=== PATIENT | male | born 1990 | race Caucasian/White ===

== ENCOUNTER 2016-10-20 16:55 | Emergency (ER) | payer OTHER ==
[~2016-10-20 16:55] MED LIST: IBUP600T26 PO
[2016-10-20 17:01] VITALS: BP 130/100; PULSE 65; RESP 20; TEMP 97.9; O2SAT 99
--- NOTE | 2016-10-20 18:21 | PD ---
HPI Chief Complaint: Musculoskeletal Complaint Time Seen by Provider: 18:17 Travel History International Travel<30 days: No Contact w/Intl Traveler<30days: No Traveled to known affect area: No History of Present Illness HPI 25-year-old male presents to the emergency room for evaluation of right hand pain and swelling that started just prior to arrival. Patient was punching a punching bag without gloves when he felt pain in his right fourth knuckle. He looked down and saw that his hand was swollen. Pain is localized to the fourth MCP joint and fourth finger. Denies loss range of motion or paresthesias. Denies significant pain. Patient has not taken anything and came straight to the emergency room after injury. Denies any other injuries. No chronic medical conditions or daily medications. [facility] Social History Alcohol Use: No Tobacco Use: Yes (5 CIGGERETTES DAILY) Substance Use: No Allergies-Medications (Allergen,Severity, Reaction): Coded Allergies: No Known Allergies (Unverified , 10/20/16) Reported Meds & Prescriptions Reported Meds & Active Scripts Active No Active Prescriptions or Reported Medications Review of Systems Except as stated in HPI: all other systems reviewed are Neg Physical Exam Narrative GENERAL: Well-nourished, well-developed male in no acute distress. Afebrile. Ambulatory. SKIN: Focused skin assessment warm/dry. Mild to moderate erythema and ecchymosis over the right fourth dorsal MCP joint. HEAD: Normocephalic. EYES: No scleral icterus. No injection or drainage. NECK: Supple, trachea midline. No JVD or lymphadenopathy. CARDIOVASCULAR: Regular rate and rhythm without murmurs, gallops, or rubs. RESPIRATORY: Breath sounds equal bilaterally. No accessory muscle use. EXTREMITY: Extreme tenderness to palpation of the right fourth MCP joint and right fourth proximal phalanx. Moderate tenderness to palpation of the right fifth metacarpal. Less than 2 second capillary refill distally. Full range motion of the right hand. Moderate edema of the fourth MCP joint. Data Data Last Documented VS Vital Signs Date Time Temp Pulse Resp B/P Pulse Ox O2 Delivery O2 Flow Rate FiO2 10/20/16 18:26 16 10/20/16 17:01 97.9 65 130/100 99 Orders Hand, Complete ([id number]) (10/20/16 ) Splint Or Brace Apply/Monitor (10/20/16 18:58) [facility] Medical Decision Making Medical Screen Exam Complete: Yes Emergency Medical Condition: Yes Medical Record Reviewed: Yes Differential Diagnosis Facture, sprain, strain, contusion Narrative Course 25-year-old male presents to the emergency room for evaluation of right fourth and metacarpal pain and swelling after punching a punching bag without gloves just prior to arrival. Right hand is neurovascularly intact with 2 second capillary refill distally. Full range of motion of the right hand. There is moderate edema and extreme tenderness to palpation especially over the fourth and fifth MCP joints. X-ray shows probable nondisplaced fracture of the fifth metacarpal. Patient placed in ulnar gutter splint and discharged with orthopedic instructions. Told to follow up with primary care physician or return for worsening symptoms. He understands and agrees to plan. Diagnosis Primary Impression: Fracture of fifth metacarpal bone Qualified Code: S62.396A - Closed nondisplaced fracture of other part of fifth metacarpal bone of right hand, initial encounter Referrals: Primary Care Physician Patient Instructions: General Instructions, Hand Fracture (ED) Additional Instructions: Rest and drink plenty of fluids. Keep splint on until follow-up. Take ibuprofen with food as directed, as needed for pain. Elevate and apply ice to the affected area for 20 minutes at a time, as needed for pain and swelling. Follow-up with a primary care physician. Return to the emergency room for worsening symptoms. Scripts No Active Prescriptions or Reported Meds Disposition: 01 DISCHARGE HOME Condition: Stable Nuha Diaz Oct 20, 2016 18:21
--- NOTE | 2016-10-20 18:51 | RADRPT ---
EXAM DATE/TIME: 10/20/2016 18:25 [facility] COMPARISON: No previous studies available for comparison. INDICATIONS : Right hand pain. MEDICAL HISTORY : None. SURGICAL HISTORY : None. ENCOUNTER: Initial ACUITY: 1 day PAIN SCORE: 5/10 LOCATION: Right hand, 3rd digit. FINDINGS: Normal bone density.Widths are intact. Mild dorsal soft tissue swelling. Questionable nondisplaced fr acture through the fifth metacarpal distally. Third metacarpal appears intact. CONCLUSION: Fifth metacarpal fracture suspected. Correlate for point tenderness. Kvng Morrow MD on October 20, 2016 at 18:49 Board Certified Radiologist. This report was verified electronically.
== END 2016-10-20 19:35 | disposition home or self-care (01) ==
LOC: PHED 16:55 → PHEFT 19:35
DX: S62.396A Other fracture of fifth metacarpal bone, right hand, initial encounter for closed fracture (principal); W22.8XXA Striking against or struck by other objects, initial encounter; Y93.89 Activity, other specified; Y92.9 Unspecified place or not applicable
CPT/HCPCS: 29125; 73130

== ENCOUNTER 2016-10-31 08:03 | Emergency (ER) | payer OTHER ==
[~2016-10-31] VITALS: Ht 180.3 cm; Wt 70.0 kg
[2016-10-31 08:04] VITALS: BP 133/73; PULSE 72; RESP 16; TEMP 99; O2SAT 96
--- NOTE | 2016-10-31 08:30 | PD ---
HPI Chief Complaint: Lump, Cyst, Hernia Time Seen by Provider: 08:19 Travel History International Travel<30 days: No Contact w/Intl Traveler<30days: No Traveled to known affect area: No History of Present Illness HPI 26yo M with no PMH presents to the ED with c/o a lump intermittently in his left groin for 2 weeks. States he noticed it after working out. Currently has no pain, nausea, vomiting, fever, chest pain, sob, abdominal pain, testicular pain, penile discharge or rash. Pt currently does not have the lump. PFSH Past Medical History Medical History: Denies Significant Hx Past Surgical History Other Surgery: Yes (right hand 5th digit) Social History Alcohol Use: No Tobacco Use: Yes Substance Use: Yes (states smokes "weed") Allergies-Medications (Allergen,Severity, Reaction): Coded Allergies: No Known Allergies (Unverified , 10/31/16) Reported Meds & Prescriptions Reported Meds & Active Scripts Active No Active Prescriptions or Reported Medications Review of Systems Except as stated in HPI: all other systems reviewed are Neg Physical Exam Narrative GENERAL: 26yo M not in distress. SKIN: Focused skin assessment warm/dry. HEAD: Atraumatic. Normocephalic. CARDIOVASCULAR: Regular rate and rhythm. No murmur appreciated. RESPIRATORY: No accessory muscle use. Clear to auscultation. Breath sounds equal bilaterally. GASTROINTESTINAL: Abdomen soft, non-tender, nondistended. No rebound tenderness or guarding. : No testicular ttp. No inguinal hernia palpated. No inguinal tenderness to palpation. MUSCULOSKELETAL: No obvious deformities. No clubbing. No cyanosis. No edema. NEUROLOGICAL: Awake and alert. No obvious cranial nerve deficits. Motor grossly within normal limits. Normal speech. PSYCHIATRIC: Appropriate mood and affect; insight and judgment normal. Data Data Last Documented VS Vital Signs Date Time Temp Pulse Resp B/P Pulse Ox O2 Delivery O2 Flow Rate FiO2 10/31/16 08:04 99.0 72 16 133/73 96 Room Air MDM Medical Decision Making Medical Screen Exam Complete: Yes Emergency Medical Condition: Yes Differential Diagnosis Inguinal hernia vs. musculoskeletal pain Narrative Course 26yo M here with c/o intermittent lump that shows up after working out for 2 weeks. Sounds like inguinal hernia but pt currently has no pain, and there is no hernia visualized on exam. VS wnl. Pt has no emergency now. Will refer him to general surgery as outpatient for evaluation. Diagnosis Primary Impression: Left groin pain Referrals: Fercho Gomez MD as needed Intermittent left groin mass after working out that may be inguinal hernia. Outpatient evaluation as needed. Patient Instructions: General Instructions Departure Forms: Tests/Procedures Additional Instructions: Please follow up with general surgery for further evaluation of left groin mass that may be inguinal hernia. Return to the ED if you have pain, vomiting, or any other concerning symptoms. Med/Other Pt SpecificInfo: Prescription(s) given Scripts Acetaminophen (Tylenol)325 Mg Gou295 Mg PO Q6H PRN (PAIN SCALE 1 TO 4) #20 TAB Ref 0 Prov:Dannielle Pfeiffer DO 10/31/16 Disposition: 01 DISCHARGE HOME Condition: Stable Dannielle Pfeiffer DO Oct 31, 2016 08:30
[2016-10-31] MEDS ORDERED: TYLE325T PO (08:41)
== END 2016-10-31 09:24 | disposition home or self-care (01) ==
LOC: NEPE 08:03
DX: R10.32 Left lower quadrant pain (principal)
CPT/HCPCS: 99282